=== PATIENT | male | born 1985 | race Caucasian/White ===

== ENCOUNTER 2019-07-29 09:21 | Emergency (ER) | payer OTHER ==
[~2019-07-29] VITALS: Ht 180.3 cm; Wt 117.8 kg
[2019-07-29] MEDS ORDERED: ZYPREXA10 MG PO (17:10)
[2019-07-29] MEDS ORDERED: BENZTROPINE MESY2 MG PO (17:10)
== END 2019-07-29 17:26 | disposition home or self-care (01) ==
LOC: ED 09:21
DX: F20.9 Schizophrenia, unspecified (principal)
CPT/HCPCS: 99284